=== PATIENT | female | born 2000 | race Caucasian/White ===

== ENCOUNTER 2024-07-07 12:59 | Outpatient (AMB) | payer OTHER, SELFPAY ==
--- NOTE | 2024-07-07 13:07 | MHC.PC.OV ---
Vital Signs 07/07/24 13:09 Height 4 ft 11 in Weight 138 lb 2 oz BMI 27.9 BP 98/62 Blood Pressure Location Lt brachial Position Sitting Pulse 83 Pulse Source Pulse Oximeter Pulse Oximetry (%) 98 Oxygen Delivery Method Room Air Intake Visit Reasons: New Patient Public Health Physician Required: Yes Accompanied by: Mother Allergies No Known Allergies Allergy (Verified 07/07/24 13:33) Medication List - Last Reconciled 07/07/24 by Hilaria Winn PA-C albuterol sulfate 90 mcg/actuation 1 inh inhalation QID ferrous sulfate (Feosol) 325 mg PO DAILY hydroxyzine HCl 10 mg PO TID PRN sertraline 50 mg PO DAILY Tobacco use date assessed: 07/07/24 Dental Screening Dental Screen Date: 07/07/24 Did you have a dental visit in the last 12 months?: Yes Did you have a dental problem in the last 6 months where you did not have access to dental care?: No Was dental information given to patient?: Patient has dentist HPI New Patient HPI Details 23-year-old female coming to the office with the 1st time. Patient is not known to [facility]. Patient presents today with her mother. Virtual fleet administrative assistant [id number] was used for the duration of this visit. Patient recently moved from [place] and was being seen in [place] but has not had a primary care provider [facility]. She has a history of anxiety treated with sertraline hydroxyzine and feels well managed on this medication. She has had 2 previous since with a tubal ligation. She is not up-to-date on Pap smears and does not routinely follow up with gynecology. She does have an eye doctor Georgina in [place]. She states over the last 2 weeks she began having stabbing chest pain primarily after working out. She was walking on a treadmill and began having chest pain that caused her to stop exercising. Since then she has not done any rigorous exercise but chest pain comes on while she is resting in last up to half an hour before subsiding. She does not identify any other inciting events and does not taken any medication for the pain. She has never had this pain in the past. Denies any other symptoms with the chest pain but does state she feels fatigued. Denies any cough, shortness of breath, headaches or fevers. [facility] Medical History delivery delivered Surgical History H/O tubal ligation Family History (Updated 07/07/24 @ 13:39 by Hilaria Winn PA-C) Mother Cervix cancer Other Arthritis Heart disease Social History Housing: House Patient Tobacco Use Status: Never used Tobacco e-Cigarette/Vaping Use: Never Used Second Hand Smoke Exposure: No service: No Current occupational status: employed Current occupational exposures/hazards: No Cognitive needs: No Hearing needs: No Vision needs: No Female Reproductive History Menstrual control method: none Total pregnancies: 2 Full term: 1 Premature: 1 Number of Living Children: 2 Questionnaire PHQ-9 Over the last 2 weeks, how often have you been bothered by any of the following problems? 1. Little interest or pleasure in doing things: not at all 2. Feeling down, depressed, or hopeless: not at all 3. Trouble falling or staying asleep, or sleeping too much: not at all 4. Feeling tired or having little energy: not at all 5. Poor appetite or overeating: not at all 6. Feeling bad about yourself - or that you are a failure or have let yourself or your family down: not at all 7. Trouble concentrating on things, such as reading the newspaper or watching television: not at all 8. Moving or speaking so slowly that other people could have noticed. Or the opposite - being so fidgety or restless that you have been moving around a lot more than usual: not at all 9. Thoughts that you would be better off or of hurting yourself in some way: not at all Total score: 0 Source: Developed by Drs. Renny Kuo, Millie Perkins, Jayden Steiner and colleagues, with an educational omid from [employer]. Thrive Questionnaire Date Thrive assessed: 07/07/24 I am a: Patient What is your living situation today?: I have a steady place to live Within the past 12 months, did the food you bought not last and you didn't have the money to get more?: Often true Within the past 12 months, did you worry whether your food would run out before you got money to buy more?: Often true Do you have trouble paying for medicines?: No Do you have trouble getting transportation to medical appointments?: No Do you have trouble paying your heating and electricity bill?: No Do you have trouble taking care of your child, family member or friend?: No Do you have trouble with day-to-day activities such as bathing, preparing meals, shopping, managing finances, etc.?: No Are you currently unemployed and looking for a job?: No Are you interested in more education?: No Please select the resources that you would like help with: None Currently or been in a relationship where the following occur: I choose not to answer THRIVE Score: 2 AUDIT C Alcohol Use Questionnaire (AUDIT-C) 1. How often do you have a drink containing alcohol?: Never Total Score: 0 AIDAN-7 AMB Questionnaire AIDAN-7 Date AIDAN - 7 assessed: 07/07/24 Feeling nervous, anxious, or on edge: 0 = Not at all Not being able to stop or control worryin = Not at all Worrying too much about different things: 0 = Not at all Trouble relaxin = Not at all Being so restless that it is hard to sit still: 0 = Not at all Becoming easily annoyed or irritable: 0 = Not at all Feeling afraid as if something awful might happen: 0 = Not at all Total AIDAN-7 score (0-4 normal; 5-9 mild; 10-14 moderate; 15-21 severe): 0 Source: Developed by Drs. Renny Kuo, Millie Perkins, Jayden Steiner and colleagues, with an educational omdi from [employer]. Review of Systems Const Denies body aches, Denies fatigue, Denies fever(s), Denies frequent falls, Denies headache(s) and Denies weakness Eyes Reports no additional complaints, Denies change in vision and Reports requires corrective lenses ENT Denies dysphagia, Denies dizziness, Denies headache(s) and Denies odynophagia Card Reports chest pain, Reports chest pain with activity, Denies syncope, Denies irregular heart rhythm, Denies leg edema, Denies lightheadedness and Denies dyspnea Resp Denies cough and Denies dyspnea GI Denies abdominal pain, Reports constipation, Denies dysphagia, Denies dyspepsia, Denies diarrhea, Denies nausea, Denies odynophagia and Denies vomiting Reports no additional complaints Musc Denies back pain and Denies myalgias Skin/Breast Reports system reviewed and no additional complaints, except as documented Neuro Denies dizziness, Denies syncope, Denies frequent falls, Denies headache(s) and Denies weakness Psych Reports no additional complaints Endo Denies fatigue Physical exam (Primary Care) Vital Signs: Last Vital Signs Pulse 83 07/07/24 13:09 BP 98/62 07/07/24 13:09 Pulse Ox 98 07/07/24 13:09 Oxygen Delivery Method Room Air 07/07/24 13:09 BMI result Body Mass Index 27.9 Tobacco/Smoking Status: Tobacco use Status Tobacco use date assessed 07/07/24 07/07/24 13:15 Patient Tobacco Use Status Never used Tobacco 07/07/24 13:15 e-Cigarette/Vaping Use Never Used 07/07/24 13:15 PHQ-9: PHQ-9 Score PHQ-9: Total score 0 07/07/24 13:16 Thrive Assessment: Date of Thrive Assessment Date Thrive assessed 07/07/24 07/07/24 13:15 Currently or been in a relationship where the following occur: I choose not to answer Const General: cooperative, healthy appearing, comfortable and no acute distress Orientation/consciousness: patient oriented x3 HENMT Head: Yes normocephalic Ears: hearing grossly normal bilaterally General nose exam: Normal external nose present Eyes General: appearance normal, both eyes and all related structures Conjunctivae: conjunctivae normal Neck Neck: Yes full ROM and Yes no lymphadenopathy Chest Other: No pain to palpation on exam Chest palpation & inspection: normal inspection of the chest and normal palpation of entire chest wall Resp Effort & Inspection: normal respiratory effort Auscultation: clear to auscultation bilaterally, no crackles, no rales, no rhonchi and no wheezes Cardio Rate: regular rate Rhythm: regular rhythm Skin General skin exam: no rashes or lesions noted Neuro General: patient oriented x3 Gait exam (Neuro): Normal gait present Extrem General: Yes normal to inspection, Yes full ROM and No edema Psych Affect: normal affect Attitude: cooperative Insight: Good insight present (Psych) Judgement: Good judgement present (Psych) Coding Level of Care Code New Pt Level 4 (81531) Diagnoses Anemia D64.9 Asthma J45.909 Anxiety F41.9 Chest pain R07.9 Constipation K59.00 Assessment & Plan Assessment & Plan (1) Anemia: Code(s): D64.9 - Anemia, unspecified Category: Medical Plan: Patient has a previous diagnosis of anemia and is taking iron supplementation. Ordered for updated blood work including iron panel. (2) Asthma: Code(s): J45.909 - Unspecified asthma, uncomplicated Category: Medical Plan: Asthma currently controlled on present medications. Continue on albuterol as needed. Avoid triggers such as allergies. Uses albuterol very rarely and denies any nighttime awakenings. (3) Anxiety: Code(s): F41.9 - Anxiety disorder, unspecified Category: Medical Plan: Currently on sertraline and hydroxyzine as needed. Feels well managed on this medication and does not need any refills at this time. Declines a counselor. (4) Chest pain: Code(s): R07.9 - Chest pain, unspecified Category: Medical Plan: Patient complaining of chest pain for the last 2 weeks that worsened while walking on a treadmill. Patient does not identify any inciting events and does not have pain to palpation on exam. Ordered for cardiac stress test for further evaluation. (5) Constipation: Code(s): K59.00 - Constipation, unspecified Category: Medical Plan: Patient complaining of constipation likely related to uses iron supplementation. Prescription sent for Colace advised to increase water and fiber intake. Plan This note was constructed using voice recognition software. While every effort has been made to ensure accuracy and custom garment designer, still areas may have been included sometimes these areas may affect the content or meeting of the given symptoms. Total time spent caring for the patient today was 30 minutes. This includes time spent before the visit reviewing the chart, time spent during the visit, and time spent after the visit and documentation. Orders: Orders IRON PROFILE Today D64.9 - Anemia, unspecified Complete Blood Count Auto Diff Today D64.9 - Anemia, unspecified, Z00.00 - Encounter for general adult medical examination without abnormal findings Comprehensive Met. Panel Today Z00.00 - Encounter for general adult medical examination without abnormal findings Free T4 (Free Thyroxine) Today Z00.00 - Encounter for general adult medical examination without abnormal findings CA stress test Today R07.9 - Chest pain, unspecified TSH reflex Free T4 Today Z00.00 - Encounter for general adult medical examination without abnormal findings Vitamin B12 and Folate Today Z00.00 - Encounter for general adult medical examination without abnormal findings Vitamin D 25-OH Total Today Z00.00 - Encounter for general adult medical examination without abnormal findings Referrals [facility] Referral Z12.4 - Encounter for screening for malignant neoplasm of cervix Medications: New docusate sodium (Colace) 100 mg PO DAILY 30 caps 2RF
[2024-07-07 13:09] VITALS: BP 98/62; PULSE 83; O2SAT 98; BMI 27.9
== END 2024-07-07 14:15 | disposition home or self-care (01) ==
DX: D64.9 Anemia, unspecified (principal); J45.909 Unspecified asthma, uncomplicated; F41.9 Anxiety disorder, unspecified; R07.9 Chest pain, unspecified; K59.00 Constipation, unspecified

== ENCOUNTER 2024-07-15 14:26 | Outpatient (REF) | payer OTHER, SELFPAY ==
[2024-07-15 14:46] LABS: MANUAL DIFF FLAG NO
[2024-07-15 15:39] LABS: Basophils Absolute Auto 0.1 X10*3/uL (0.0-0.2); Basophils Percent Auto 0.5 % (0-2); Eosinophils Absolute Auto 0.2 X10*3/uL (0.0-0.4); Eosinophils Percent Auto 2.1 % (0-4); Hematocrit 38.6 % (37.0-47.0); Hemoglobin 12.3 g/dl (12.0-16.0); Imm Gran Abs Auto 0.03 X10*3/uL (0.00-0.03); Imm Gran Pct Auto 0.3 % (0.0-0.4); Lymphocytes Absolute Auto 3.7 X10*3/uL (1.2-4.9); Lymphocytes Percent Auto 36.8 % (20-40); Mean Corpuscular HGB Conc 31.9 g/dl (31.0-35.0); Mean Corpuscular Volume 87.9 fL (80.0-98.0); Mean Platelet Volume 10.2 fL (9.4-12.3); Monocytes Absolute Auto 0.5 X10*3/uL (0.1-1.2); Monocytes Percent Auto 5.1 % (2-11); Neutrophils Absolute Auto 5.5 x10*3/uL (2.0-8.3); Neutrophils Percent Auto 55.2 % (45-73); Platelet Count 371 X10*3/uL (160-400); Red Blood Count 4.39 X10*6/uL (4.20-5.50); Red Cell Distribution Width 13.2 % (11.0-16.0)
[2024-07-15 16:16] LABS: Alanine Aminotransferase 14 U/L (0-31); Albumin Level 4.7 g/dL (3.5-5.0); Anion Gap 11 (12-20); Aspartate Amino Transferase 22 U/L (5-31); Bilirubin Total 0.4 mg/dL (0.0-1.0); Blood Urea Nitrogen 13 mg/dL (9-16); Calcium 9.7 mg/dL (8.4-10.2); Carbon Dioxide 26 mmol/L (22-29); Chloride 106 mmol/L (96-108); Estimated Glomerular Filt Rate > 60; Glucose Random 96 mg/dL (60-115); Iron 61 mcg/dL (30-160); Percent Iron Saturation 21 % (15-50); Potassium 4.2 mmol/L (3.3-5.1); Sodium 139 mmol/L (135-145); Total Iron Binding Capacity 295 mcg/dL (228-428); Total Protein 8.3 g/dL (6.5-8.0); Unsaturated Iron Binding 234 ug/dL
[2024-07-15 16:23] LABS: Alkaline Phosphatase 83 U/L (39-117)
[2024-07-15 16:35] LABS: Free T4 (Free Thyroxine) 1.09 ng/dL (0.71-1.85); TSH reflex Free T4 1.04 uIU/mL (0.32-4.0); Vitamin D 25-OH Total 23.2 ng/mL (>30)
[2024-07-15 16:40] LABS: Vitamin B12 368 pg/mL (200-900)
== END 2024-07-15 14:27 | disposition home or self-care (01) ==
LOC: HO.LAB 14:26
DX: Z00.00 Encounter for general adult medical examination without abnormal findings (principal); D64.9 Anemia, unspecified
CPT/HCPCS: 36415; 80053; 82306; 82607; 82746; 83540; 84439; 84443; 85025

== ENCOUNTER → 2024-07-19 09:28 | Outpatient (REF) | payer OTHER, SELFPAY ==
--- NOTE | 2024-07-19 09:31 | CA_ITS ---
Acquisition Time: 2024-07-19 09:46:23 Total Exercise Time: 00:07:59 Test Indications: CHEST PAIN Medications: ALBUTEROL Protocol: JUSTIN Max HR: 196 BPM 100% of Pred: 195 BPM Max BP: 118/80 mmHG Max Work Load: 10.0 METS Exercise Stress Test with exercise 7 mins 59 secs of Justin Protocol, achieving 100% MPHR, with reports of 5/10 right sided chest tightness that resolved quickly in recovery, without any arrythmias, with normotensive response to exercise. Without EKG changes meeting criteria for ischemia. Recommend further testing with Stress Echo. Test reviewed with Dr. Aldridge. Referred By: Hilaria Winn Electronically Signed By: Christoph Loya
== END ==
LOC: HO.CARD 09:28
DX: R07.9 Chest pain, unspecified (principal)
CPT/HCPCS: 93017

== ENCOUNTER → 2024-07-19 09:31 | Outpatient (BNV) | payer OTHER, SELFPAY | DX: R07.9 Chest pain, unspecified (principal) | CPT/HCPCS: 93016; 93018 ==

== ENCOUNTER 2024-10-14 14:25 | Outpatient (AMB) | payer OTHER, SELFPAY ==
[2024-10-14 14:36] VITALS: BP 116/68; PULSE 67; RESP 16; TEMP 36.9; O2SAT 98; BMI 26.8
--- NOTE | 2024-10-14 14:36 | A.OFFPC_ITS ---
Vital Signs 10/14/24 14:36 Height 4 ft 11 in Weight 132 lb 12.8 oz BMI 26.8 BP 116/68 Blood Pressure Location Lt brachial Position Sitting Respiration 16 Pulse 67 Pulse Source Pulse Oximeter Temp 98.5 F Temp Source Oral Pulse Oximetry (%) 98 Oxygen Delivery Method Room Air Intake Visit Reasons: earache, sore throat, congestion Insurance Processing Clerk Required: Yes Insurance Processing Clerk Name: Cecy- Florentin [id number] Allergies No Known Allergies Allergy (Verified 10/14/24 14:52) Medication List - Last Reconciled 10/14/24 by ARMANDO Harris albuterol sulfate 90 mcg/actuation 1 inh inhalation QID PRN cholecalciferol (vitamin D3) 50 mcg PO DAILY docusate sodium (Colace) 100 mg PO DAILY hydroxyzine HCl 10 mg PO TID PRN sertraline 50 mg PO DAILY Tobacco use date assessed: 10/14/24 Dental Screening Dental Screen Date: 10/14/24 Did you have a dental visit in the last 12 months?: Yes Did you have a dental problem in the last 6 months where you did not have access to dental care?: No Was dental information given to patient?: Patient has dentist HPI earache, sore throat, congestion HPI Details The patient is a 23 year old female with significant hx of asthma, anxiety, chest pain The patient is presenting with a 3 days history for sore throat and a two days hx of nasal congestion, productive cough of green secretion Reports that her kids were sick first. She denies body and abdominal pain Reports that her that her left ear started hurting yesterday She is also having runny nose and chest pain with coughing Reports that she is having SOB-hx of asthma and has been using the nebulizer treatments The patient reports she is having a lot of congestion and a dry cough She reports that her cough is worse at night. [facility] Medical History delivery delivered Surgical History H/O tubal ligation Family History Mother Cervix cancer Other Arthritis Heart disease Social History (Reviewed 10/15/24 @ 14:15 by BURT Harris Housing: House Patient Tobacco Use Status: Never used Tobacco e-Cigarette/Vaping Use: Never Used Second Hand Smoke Exposure: No service: No Current occupational status: employed Current occupational exposures/hazards: No Cognitive needs: No Hearing needs: No Vision needs: No Questionnaire PHQ-9 Over the last 2 weeks, how often have you been bothered by any of the following problems? 1. Little interest or pleasure in doing things: not at all 2. Feeling down, depressed, or hopeless: not at all 3. Trouble falling or staying asleep, or sleeping too much: not at all 4. Feeling tired or having little energy: not at all 5. Poor appetite or overeating: not at all 6. Feeling bad about yourself - or that you are a failure or have let yourself or your family down: not at all 7. Trouble concentrating on things, such as reading the newspaper or watching television: not at all 8. Moving or speaking so slowly that other people could have noticed. Or the opposite - being so fidgety or restless that you have been moving around a lot more than usual: not at all 9. Thoughts that you would be better off or of hurting yourself in some way: not at all Total score: 0 Depression Screening Interpretation: Negative Depression Screening Done: Yes Source: Developed by Drs. Renny Kuo, Millie Perkins, Jayden Steiner and colleagues, with an educational omid from [employer]. Thrive Questionnaire Date Thrive assessed: 10/14/24 I am a: Patient What is your living situation today?: I have a steady place to live Within the past 12 months, did the food you bought not last and you didn't have the money to get more?: Never true Within the past 12 months, did you worry whether your food would run out before you got money to buy more?: Never true Do you have trouble paying for medicines?: No Do you have trouble getting transportation to medical appointments?: No Do you have trouble paying your heating and electricity bill?: No Do you have trouble taking care of your child, family member or friend?: No Do you have trouble with day-to-day activities such as bathing, preparing meals, shopping, managing finances, etc.?: No Are you currently unemployed and looking for a job?: No Are you interested in more education?: No Please select the resources that you would like help with: None Currently or been in a relationship where the following occur: No concerns reported and I choose not to answer THRIVE Score: 0 AUDIT C Alcohol Use Questionnaire (AUDIT-C) 1. How often do you have a drink containing alcohol?: Never 3. How often do you have six or more drinks on one occasion?: Never Total Score: 0 AIDAN-7 AMB Questionnaire AIDAN-7 Date AIDAN - 7 assessed: 10/14/24 Feeling nervous, anxious, or on edge: 0 = Not at all Not being able to stop or control worryin = Not at all Worrying too much about different things: 0 = Not at all Trouble relaxin = Not at all Being so restless that it is hard to sit still: 0 = Not at all Becoming easily annoyed or irritable: 0 = Not at all Feeling afraid as if something awful might happen: 0 = Not at all Total AIDAN-7 score (0-4 normal; 5-9 mild; 10-14 moderate; 15-21 severe): 0 Source: Developed by Drs. Renny Kuo, Millie Perkins, Jayden Steiner and colleagues, with an educational omid from [employer]. Review of Systems Const Denies body aches, Denies chills and Denies fever(s) ENT Reports dry mouth, Reports otalgia, Reports nasal congestion, Reports post nasal drip and Reports sore throat Card Reports chest pain (With coughing), Denies leg edema, Denies lightheadedness and Reports dyspnea Resp Reports cough (Greenish secretion mostly in the mornings), Denies hemoptysis and Reports dyspnea GI Denies abdominal pain Physical exam (Primary Care) Vital Signs: Last Vital Signs Temp 98.5 F 10/14/24 14:36 Pulse 67 10/14/24 14:36 Resp 16 10/14/24 14:36 BP 116/68 10/14/24 14:36 Pulse Ox 98 10/14/24 14:36 Oxygen Delivery Method Room Air 10/14/24 14:36 BMI result Body Mass Index 26.8 Tobacco/Smoking Status: Tobacco use Status Tobacco use date assessed 10/14/24 10/14/24 14:50 Patient Tobacco Use Status Never used Tobacco 10/14/24 14:50 e-Cigarette/Vaping Use Never Used 10/14/24 14:50 PHQ-9: PHQ-9 Score PHQ-9: Total score 0 10/14/24 15:19 Depression Screening Interpretation: Negative Thrive Assessment: Date of Thrive Assessment Date Thrive assessed 10/14/24 10/14/24 14:50 Currently or been in a relationship where the following occur: No concerns reported and I choose not to answer Const General: healthy appearing, no acute distress, alert and awake Nutritional Appearance: well nourished HENMT Ears: TM's normal bilaterally General nose exam: Abnormal mucous membranes and turbinates present boggy and erythematous and Nasal discharge present purulent on the left Face and sinus: No sinus tenderness Throat: Yes posterior oropharynx abnormal and Yes cobblestoning Eyes Conjunctivae: conjunctivae normal Sclerae: sclerae normal Neck Neck: Yes no lymphadenopathy and Yes no JVD Thyroid: Thyroid normal Carotids: no bruits Resp Effort & Inspection: normal respiratory effort and not tachypneic Auscultation: no crackles, no rales, no rhonchi and no wheezes Cardio Rate: regular rate Rhythm: regular rhythm Heart sounds: no murmurs and normal S1 and S2 GI Palpation (GI): Soft to palpation and nontender Auscultation: normal bowel sounds Results AMB Rapid Strep AMB Rapid Strep Negative Last Edit by Lakeisha Addison CMA on 10/14/24 15:23 Results Reviewed Results Reviewed: Laboratory Last Values Strep Scn [facility] Negative 10/14/24 15:19 Coding Level of Care Code Est Pt Level 3 (08233) Diagnoses Pharyngitis, unspecified etiology J02.9 Pharyngitis/tonsillitis etiology: unspecified etiology Nasal congestion R09.81 Asthma, unspecified asthma severity, unspecified whether complicated, unspecified whether persistent J45.909 Asthma severity: unspecified severity Asthma persistence: unspecified Asthma complication type: unspecified Time Spent (min) 37 Assessment & Plan Assessment & Plan (1) Pharyngitis: Code(s): J02.9 - Acute pharyngitis, unspecified Category: Medical Qualifiers: Pharyngitis/tonsillitis etiology: unspecified etiology Qualified Code(s): J02.9 - Acute pharyngitis, unspecified Plan: Rapid strep negative in office Augmentin 875-125 mg 1 tab p.o. b.i.d. x7 days ordered. Increase fluids (2) Nasal congestion: Code(s): R09.81 - Nasal congestion Category: Medical Plan: Prednisone tapered ordered (3) Asthma: Code(s): J45.909 - Unspecified asthma, uncomplicated Category: Medical Qualifiers: Asthma severity: unspecified severity Asthma persistence: unspecified Asthma complication type: unspecified Qualified Code(s): J45.909 - Unspecified asthma, uncomplicated Plan: Patient complain of intermittent shortness of breath. She has a history of asthma in used nebulizer treatments as needed. Prednisone tapered ordered. Continue nebulizer treatments as needed. Encouraged adequate fluid intake Plan Contact office if symptoms are not resolving in 72 hours Orders: Orders AMB Rapid Strep Screen 10/14/24 J02.9 - Acute pharyngitis, unspecified Medications: New amoxicillin-pot clavulanate 875-125 mg 1 tab PO BID 7 days 14 tabs 0RF J02.9 - Acute pharyngitis, unspecified prednisone see taper instructions take 4 tabs x 2 days, 3 tabs x 2 days, 2 tabs x 2 days, 1 tab x 2 days =20 tabs for 8 days 10 mg PO DIRECTED 20 tabs 0RF
== END 2024-10-14 15:34 | disposition home or self-care (01) ==
LOC: HO.HMCH 14:25
DX: J02.9 Acute pharyngitis, unspecified (principal); R09.81 Nasal congestion; J45.909 Unspecified asthma, uncomplicated

== ENCOUNTER → 2024-10-14 14:25 | Outpatient (BNVA) | payer OTHER, SELFPAY | DX: J02.9 Acute pharyngitis, unspecified (principal); R09.81 Nasal congestion; J45.909 Unspecified asthma, uncomplicated | CPT/HCPCS: 87880; 99212 ==

== ENCOUNTER 2024-12-02 14:04 | Outpatient (AMB) | payer OTHER, SELFPAY ==
[2024-12-02 14:05] VITALS: BP 104/62; PULSE 79; TEMP 36.8; O2SAT 99; BMI 27.2
--- NOTE | 2024-12-02 14:05 | MHC.OFFWIV ---
Intake Vital Signs 12/02/24 14:05 Height 4 ft 11 in Weight 134 lb 8 oz BMI 27.2 BP 104/62 Blood Pressure Location Rt brachial Position Sitting Pulse 79 Pulse Source Pulse Oximeter Temp 98.2 F Temp Source Oral Pulse Oximetry (%) 99 Oxygen Delivery Method Room Air Intake Visit Reasons: EP LT eye ~ pink eye/sore throat Intake Note: Pt presents to the office today for c/o a sore throat and itchy left eye since yesterday. Patient Tobacco Use Status: Never used Tobacco Bunker Worker Required: Yes Bunker Worker Language: Data Analysis Intern Name: Margot([id number]) Allergies No Known Allergies Allergy (Verified 12/02/24 14:05) HPI EP LT eye ~ pink eye/sore throat HPI Details This is a 23-year-old female patient who presents to the walk-in clinic today with report of sore throat and question of pinkeye in her left eye. States that both of her kids have conjunctivitis and are being treated. She states that her sore throat started a couple of days ago. Denies any fevers/chills, respiratory symptoms, body aches or headaches. States that her children have not had any throat symptoms. States her eyes have been itchy and having alot of discharge and crusting, particularly in the morning. [facility] Medical History delivery delivered Surgical History H/O tubal ligation Family History Mother Cervix cancer Other Arthritis Heart disease Social History Housing: House Patient Tobacco Use Status: Never used Tobacco e-Cigarette/Vaping Use: Never Used Second Hand Smoke Exposure: No service: No Current occupational status: employed Current occupational exposures/hazards: No Cognitive needs: No Hearing needs: No Vision needs: No Review of Systems Const All systems reviewed & are unremarkable except as noted in HPI and below Physical Exam Vital Signs: Last Vital Signs Temp 98.2 F 12/02/24 14:05 Pulse 79 12/02/24 14:05 BP 104/62 05/30/25 14:05 Pulse Ox 99 12/02/24 14:05 Oxygen Delivery Method Room Air 12/02/24 14:05 BMI result Body Mass Index 27.2 Const General: cooperative and no acute distress HEENT Head: Yes normal to inspection Ears: hearing grossly normal bilaterally General nose exam: Normal external nose present Face and sinus: Yes sinuses nontender Mouth: Normal oral and palatal mucosa present Throat: Yes posterior oropharynx abnormal (mild erythema) Eyes Visual Phillips: normal visual phillips by confrontation Alignment and Position: alignment normal Periorbital: periorbital findings normal Eyelids: Yes eyelids normal Conjunctivae: conjunctival abnormal left conjunctival injection diffuse and discharge mucoid Pupils: Equal, round and reactive pupils present EOM: EOMs intact bilaterally Direct Ophthalmoscopy: normal light reflex and no photophobia Neck Neck: Yes no lymphadenopathy Resp Effort & Inspection: normal respiratory effort Auscultation: clear to auscultation bilaterally Cardio Rate: regular rate Rhythm: regular rhythm Skin General skin exam: no rashes or lesions noted Neuro Cranial nerves: Yes Equal, round and reactive pupils present Extrem General: Yes capillary refill normal and Yes no clubbing, cyanosis or edema Psych Appearance: grossly normal Mental Status: mental status grossly normal Speech and movement: Normal speech and movement present Results AMB Rapid Strep AMB Rapid Strep Negative Last Edit by Digna Saravia CMA on 12/02/24 14:17 Assessment & Plan Assessment & Plan (1) Conjunctivitis, left eye: Code(s): H10.9 - Unspecified conjunctivitis Qualifiers: Conjunctivitis type: acute Acute conjunctivitis type: bacterial Qualified Code(s): H10.32 - Unspecified acute conjunctivitis, left eye Plan: Erythromycin ordered - patient educated on indications, use, possible s/e of this. Rapid strep was negative. The symptoms are likely viral in nature. I advised she utilize some lozenges/spray for symptom management, and Tylenol/Motrin as needed. If she does not improve with time and treatment, she should return to the clinic for further evaluation. All questions were answered and patient verbalizes understanding and agrees to plan. Bunker Worker - [id number] Orders: Orders AMB Rapid Strep Screen Today Z13.9 - Encounter for screening, unspecified Medications: New erythromycin Apply 0.5 inch to lower lid of left eye 4 times daily for 5 days 1 appl ophthalmic (eye) QID 5 days 3.5 grams 1RF H10.9 - Unspecified conjunctivitis Coding Level of Care Code Est Pt Level 4 (05483) Diagnoses Acute bacterial conjunctivitis of left eye H10.32 Conjunctivitis type: acute Acute conjunctivitis type: bacterial
== END 2024-12-02 14:37 | disposition home or self-care (01) ==
PROVIDERS: Visit Provider Nurse Practitioner Family
DX: H10.32 Unspecified acute conjunctivitis, left eye (principal); Z13.9 Encounter for screening, unspecified

== ENCOUNTER → 2024-12-02 14:04 | Outpatient (BNVA) | payer OTHER, SELFPAY | PROVIDERS: Visit Provider Nurse Practitioner Family | DX: H10.32 Unspecified acute conjunctivitis, left eye (principal) | CPT/HCPCS: 87880; 99212 ==